=== PATIENT | female | born 1955 | race African-American/Black ===

== ENCOUNTER 2024-12-25 10:39 | Emergency (ER) | payer MEDICARE, OTHER ==
[~2024-12-25] VITALS: Ht 170.2 cm; Wt 91.0 kg
[2024-12-25 10:41] VITALS: O2SAT 99
[2024-12-25 13:06] LABS: BASOPHILS % 0.6 % (0.0-2.0); EOSINOPHILS % 2.0 % (0.0-5.0); HEMATOCRIT. 32.9 % (36.0-48.0); HEMOGLOBIN. 11.1 g/dL (12.0-16.0); LYMPHOCYTES % 10.0 % (20.0-50.0); MEAN PLATELET VOLUME 7.1 fl (7.4-10.4); MONOCYTES % 12.1 % (2.0-8.0); NEUTROPHILS % 75.3 % (40.0-76.0); PLATELET 238 x1000/uL (130-400); RED BLOOD CELL COUNT 4.02 mill/uL (4.2-5.4); RED CELL DISTRIBUTION WIDTH 14.0 % (11.6-14.6)
[2024-12-25 13:19] LABS: CREATININE 1.3 mg/dL (0.6-1.0); UREA NITROGEN BLOOD 12.0 mg/dL (9-23)
[2024-12-25] MEDS: ACETAMINOPHEN 1000MG/100ML 100 ML IV ONE (14:14)
[2024-12-25] MEDS: ENOXAPARIN 80MG/0.8ML SYR SUBCUT ONE (14:24)
[2024-12-25 14:33] VITALS: BP 135/63; PULSE 88; RESP 15; TEMP 37.2; O2SAT 98
== END 2024-12-25 15:16 | disposition short-term general hospital (02) ==
LOC: ER 10:39 → CMPBEDREQ 12-26 19:25
DX: M54.50 Low back pain, unspecified (principal); C79.51 Secondary malignant neoplasm of bone; I82.402 Acute embolism and thrombosis of unspecified deep veins of left lower extremity; I10 Essential (primary) hypertension; Z90.10 Acquired absence of unspecified breast and nipple; Z88.5 Allergy status to narcotic agent
CPT/HCPCS: 99285; 96365; 93971; 80048; 85025; 36415; 96372; J1650; A4606; J0131